=== PATIENT | male | born 1925 | race Caucasian/White ===

== ENCOUNTER 2017-08-28 10:29 | Inpatient (IN) | payer MEDICARE ==
[~2017-08-28] VITALS: Ht 175.3 cm; Wt 73.0 kg
[2017-08-28] VITALS (12 sets, daily range): BP systolic 144–193; BP diastolic 6–84; PULSE 51–76; RESP 16–20; TEMP 97.7–98; O2SAT 95–99
[~2017-08-28 10:29] MED LIST: CARV6.25 PO; LOSA50TA PO; OMEP20TA93 PO; PRAD150C PO; ROSU10 PO
[2017-08-28] MEDS ORDERED: SODIUM CHLORIDE 0.9% FLUSH 10 ML FLUSH IVF PRN (11:30)
--- NOTE | 2017-08-28 11:31 | PD ---
HPI Chief Complaint: Neuro Symptoms/ Deficits Time Seen by Provider: 11:04 Travel History International Travel<30 days: No Contact w/Intl Traveler<30days: No Traveled to known affect area: No History of Present Illness HPI 89-year-old male with PMH of A. fib, CVA with expressive aphasia, CAD, hypertension, HLD, CABG, and STEMI, on Predaxa presents to the ED via private car for evaluation of fall 5 days ago at home. Patient states he is unsure what predicated the fall. His states that she just saw him sitting on the ground. He denies hitting his head or loss of consciousness in the accident. states that immediately after she moved him to the chair he was having difficulties with word finding. She states that this has continued over the last 5 days. She denies facial droop or unilateral weakness. Patient initially did not want come to the hospital but after contacting their primary care provider today he decided come to the hospital. On presentation he endorses difficulties with word finding. He denies headaches, dizziness, vision changes , fevers, chills, chest pain, palpitations, shortness of breath, abdominal pain , nausea, vomiting, changes in bowel habits, dysuria, weakness of the extremities. He endorses compliance with his daily medications. He is followed by Dr. Peoples. [facility] Past Medical History Hx Anticoagulant Therapy: Yes Asthma: No Cancer: No Cardiovascular Problems: Yes High Cholesterol: Yes COPD: No Cerebrovascular Accident: Yes Coronary Artery Disease: Yes Genitourinary: No Hypertension: Yes Immune Disorder: No Inguinal Hernia: Yes Psychiatric: No Reproductive: Yes (Penile Implant ) Respiratory: Yes Immunizations Current: Yes Sleep Apnea: No Past Surgical History Abdominal Surgery: Yes (2 HERNIA REPAIRS) Cardiac Surgery: Yes (QUADRUPAL BYPASS) Coronary Artery Bypass Graft: Yes (X4) Other Surgery: Yes Social History Alcohol Use: Yes (OCCASIONALLY) Tobacco Use: No Substance Use: No Allergies-Medications (Allergen,Severity, Reaction): Coded Allergies: penicillin G (Unverified Allergy, Severe, Swelling, 08/28/17) Reported Meds & Prescriptions Reported Meds & Active Scripts Active Pradaxa (Dabigatran) 150 Mg Cap 150 Mg PO BID Reported Crestor (Rosuvastatin Calcium) 10 Mg Tab 10 Mg PO DAILY Omeprazole 20 Mg Tab 40 Mg PO DAILY Coreg (Carvedilol) 6.25 Mg Tab 6.25 Mg PO BID Losartan (Losartan Potassium) 50 Mg Tab 50 Mg PO DAILY Review of Systems Except as stated in HPI: all other systems reviewed are Neg Physical Exam Narrative GENERAL: Well-nourished, well-developed pleasant white male in no acute distress. SKIN: Focused skin assessment warm/dry. HEAD: Normocephalic. Atraumatic. EYES: No scleral icterus. No injection or drainage. PERRLA. EOMI. NECK: Supple, trachea midline. No JVD or lymphadenopathy. CARDIOVASCULAR: Irregularly irregular rate and rhythm without murmurs, gallops, or rubs. RESPIRATORY: Breath sounds clear and equal bilaterally. No accessory muscle use. GASTROINTESTINAL: Abdomen soft, non-tender, nondistended. Active bowel sounds MUSCULOSKELETAL: No cyanosis, or edema. NEUROLOGICAL: Awake and alert. Cranial nerves II through XII intact. Motor and sensory grossly within normal limits. Five out of 5 muscle strength in all muscle groups. Normal speech. No pronator drift. No ataxia. BACK: Nontender without obvious deformity. No CVA tenderness. Data Data Last Documented VS Vital Signs Date Time Temp Pulse Resp B/P (MAP) Pulse Ox O2 Delivery O2 Flow Rate FiO2 08/28/17 12:50 51 17 162/65 (97) 98 Room Air 08/28/17 10:30 97.7 Orders Orders Electrocardiogram (08/28/17 11:22) Complete Blood Count With Diff (08/28/17 11:22) Comprehensive Metabolic Panel (08/28/17 11:22) Magnesium (Mg) (08/28/17 11:22) Ckmb (Isoenzyme) Profile (08/28/17 11:22) Troponin I (08/28/17 11:22) Act Partial Throm Time (Ptt) (08/28/17 11:22) Prothrombin Time / Inr (Pt) (08/28/17 11:22) Urinalysis - C+S If Indicated (08/28/17 11:22) Chest, Single Ap (08/28/17 11:22) Ct Brain W/O Iv Contrast(Rout) (08/28/17 11:22) Ecg Monitoring (08/28/17 11:22) Iv Access Insert/Monitor (08/28/17 11:22) Oximetry (08/28/17 11:22) Sodium Chloride 0.9% Flush (Ns Flush) (08/28/17 11:30) CKMB (08/28/17 11:15) CKMB% (08/28/17 11:15) Admit Order (Ed Use Only) (08/28/17 13:03) Labs Laboratory Tests Test 08/28/17 11:15 08/28/17 12:40 White Blood Count 5.0 TH/MM3 Red Blood Count 3.97 MIL/MM3 Hemoglobin 14.0 GM/DL Hematocrit 41.6 % Mean Corpuscular Volume 104.6 FL Mean Corpuscular Hemoglobin 35.1 PG Mean Corpuscular Hemoglobin Concent 33.6 % Red Cell Distribution Width 13.8 % Platelet Count 230 TH/MM3 Mean Platelet Volume 8.4 FL Neutrophils (%) (Auto) 60.7 % Lymphocytes (%) (Auto) 26.4 % Monocytes (%) (Auto) 11.4 % Eosinophils (%) (Auto) 0.9 % Basophils (%) (Auto) 0.6 % Neutrophils # (Auto) 3.0 TH/MM3 Lymphocytes # (Auto) 1.3 TH/MM3 Monocytes # (Auto) 0.6 TH/MM3 Eosinophils # (Auto) 0.0 TH/MM3 Basophils # (Auto) 0.0 TH/MM3 CBC Comment DIFF FINAL Differential Comment Prothrombin Time 12.4 SEC Prothromb Time International Ratio 1.1 RATIO Activated Partial Thromboplast Time 35.5 SEC Blood Urea Nitrogen 21 MG/DL Creatinine 1.48 MG/DL Random Glucose 140 MG/DL Total Protein 6.8 GM/DL Albumin 3.2 GM/DL Calcium Level 8.8 MG/DL Magnesium Level 2.0 MG/DL Alkaline Phosphatase 57 U/L Aspartate Amino Transf (AST/SGOT) 23 U/L Alanine Aminotransferase (ALT/SGPT) 24 U/L Total Bilirubin 0.7 MG/DL Sodium Level 140 MEQ/L Potassium Level 4.1 MEQ/L Chloride Level 108 MEQ/L Carbon Dioxide Level 24.8 MEQ/L Anion Gap 7 MEQ/L Estimat Glomerular Filtration Rate 45 ML/MIN Total Creatine Kinase 161 U/L Creatine Kinase MB 2.0 NG/ML Troponin I 0.02 NG/ML Urine Color YELLOW Urine Turbidity CLEAR Urine pH 6.0 Urine Specific [place] 1.015 Urine Protein NEG mg/dL Urine Glucose (UA) NEG mg/dL Urine Ketones NEG mg/dL Urine Occult Blood NEG Urine Nitrite NEG Urine Bilirubin NEG Urine Urobilinogen LESS THAN 2.0 MG/DL Urine Leukocyte Esterase NEG Urine RBC LESS THAN 1 /hpf Urine WBC LESS THAN 1 /hpf Urine Mucus FEW /lpf Microscopic Urinalysis Comment CULT NOT INDICATED MDM Medical Decision Making Medical Screen Exam Complete: Yes Emergency Medical Condition: Yes Differential Diagnosis TIA versus CVA versus ACS versus metabolic derangement versus other Narrative Course 89-year-old male with PMH of A. fib, CVA with expressive aphasia, CAD, hypertension, HLD, CABG, and STEMI, on Predaxa presents to the ED via private car for evaluation of fall 5 days ago at home. Patient states he is unsure what predicated the fall. His states that she just saw him sitting on the ground. He denies hitting his head or LOC. states that the patient was having difficulties with word finding. She states that this has continued over the last 5 days. She denies facial droop or unilateral weakness. Patient did not want come to the hospital but after contacting the PCP today he decided come to the hospital. On presentation he endorses difficulties with word finding. He denies headaches, dizziness, vision changes, fevers, chills, chest pain, palpitations, shortness of breath, abdominal pain, nausea, vomiting, changes in bowel habits, dysuria, weakness of the extremities. He is followed by Dr. Peoples. Vitals reviewed. Patient's hypertensive on presentation. Physical exam reveals a pleasant white male in no acute distress. He does seem to have some expressive aphasia but am unsure as to the acuity of this as he does have a history. No focal neuro deficits. No pronator drift. Heart rate irregularly irregular. Chest CTAB. Abdomen soft and nontender. IV was established. EKG rate 65, A. fib with PVCs. Reviewed by Dr. Bullard. CXR: No acute disease per radiology read. Troponin: Negative 1 CT brain: Stable CT of the brain as compared to prior studies. CBC: WBC 5.0. Hemoglobin 14.6. CMP: BUN 21. Creatinine 1.48. Coags: INR 1.1 UA: No culture indicated I discussed the patient and workup with Dr. Bullard. He is in agreement with the patient should likely be admitted for evaluation of TIA. I discussed this plan with the family who is in agreement. I spoke with Dr. Harry who agrees to accept the patient to the medicine service. Please see medicine notes for disposition. Mar Rachel Aug 28, 2017 11:31
[2017-08-28 11:48] LABS: BASOPHIL % 0.6 % (0.0-2.0); EOSINOPHIL % 0.9 % (0.0-4.0); HEMATOCRIT 41.6 % (39.0-51.0); HEMO FLAGS DIFF FINAL; LYMPH % 26.4 % (9.0-44.0); LYMPHOCYTE # 1.3 TH/MM3 (1.0-4.8); MEAN CELL VOLUME 104.6 FL (80.0-100.0); MEAN CORPUSCULAR HEMOGLOBIN 35.1 PG (27.0-34.0); MEAN CORPUSCULAR HGB CONC 33.6 % (32.0-36.0); MONO % 11.4 % (0.0-8.0); NEUT % 60.7 % (16.0-70.0); PLATELET COUNT 230 TH/MM3 (150-450); RED BLOOD COUNT 3.97 MIL/MM3 (4.50-5.90); RED CELL DISTRIBUTION WIDTH 13.8 % (11.6-17.2)
[2017-08-28 11:55] LABS: APTT (PATIENT) 35.5 SEC (24.3-30.1); INTERNATIONAL NORMALIZED RATIO 1.1 RATIO; PROTHROMBIN TIME - PATIENT 12.4 SEC (9.8-11.6)
--- NOTE | 2017-08-28 12:00 | RADRPT ---
EXAM DATE/TIME: 08/28/2017 11:34 [facility] COMPARISON: CHEST SINGLE AP, November 30, 2015, 8:29. INDICATIONS : Palpitations MEDICAL HISTORY : Cardiovascular disease. Hypertension SURGICAL HISTORY : CABG. ENCOUNTER: Initial ACUITY: 1 day PAIN SCORE: 0/10 LOCATION: chest FINDINGS: A single view of the chest demonstrates the lungs to be symmetrically aerated without evidence of mas s, infiltrate or effusion. The cardiomediastinal contours are unremarkable. There is evidence of pre vious cardiothoracic surgery. Osseous structures are intact and stable. There are multiple old heale d right-sided rib fractures. CONCLUSION: No acute disease. Stable exam Adonis Crisostomo MD on August 28, 2017 at 11:57 Board Certified Radiologist. This report was verified electronically.
--- NOTE | 2017-08-28 12:01 | RADRPT ---
EXAM DATE/TIME: 08/28/2017 11:41 [facility] COMPARISON: CT BRAIN W/O CONTRAST, October 01, 2016, 11:10. INDICATIONS : Dizziness, fell on Friday RADIATION DOSE: 33.51 CTDIvol (mGy) MEDICAL HISTORY : Hypertension. Cardiovascular disease SURGICAL HISTORY : None. ENCOUNTER: Initial ACUITY: 1 day PAIN SCALE: 0/10 LOCATION: cranial TECHNIQUE: Multiple contiguous axial images were obtained of the head. Using automated exposure control and adj ustment of the mA and/or kV according to patient size, radiation dose was kept as low as reasonably a chievable to obtain optimal diagnostic quality images. DICOM format image data is available electro nically for review and comparison. FINDINGS: CEREBRUM: The ventricles are normal for age. There is bilateral cortical atrophy which is stable compared to th e prior exam. No evidence of midline shift, mass lesion, hemorrhage or acute infarction. No extra-a xial fluid collections are seen. POSTERIOR FOSSA: The cerebellum and brainstem are intact. The 4th ventricle is midline. The cerebellopontine angle i s unremarkable. EXTRACRANIAL: The visualized portion of the orbits is intact. SKULL: The calvaria is intact. No evidence of skull fracture. CONCLUSION: Stable CT scan of the brain compared to the prior exam of 10/01/2016. Adonis Crisostomo MD on August 28, 2017 at 11:58 Board Certified Radiologist. This report was verified electronically.
[2017-08-28 12:10] LABS: ALT (GPT) 24 U/L (12-78); ANION GAP 7 MEQ/L (5-15); AST (GOT) 23 U/L (15-37); BICARBONATE 24.8 MEQ/L (21.0-32.0); BLOOD UREA NITROGEN 21 MG/DL (7-18); CHLORIDE 108 MEQ/L (98-107); GLOMERULAR FILTRATION RATE 45 ML/MIN (>89); POTASSIUM 4.1 MEQ/L (3.5-5.1); SODIUM (NA) 140 MEQ/L (136-145)
[2017-08-28 12:14] LABS: ALKALINE PHOSPHATASE 57 U/L (45-117); CREATINE KINASE 161 U/L (39-308); TOTAL BILIRUBIN ADULT 0.7 MG/DL (0.2-1.0)
[2017-08-28 13:04] LABS: BLOOD, URINE NEG (NEG); COMMENT (UR) CULT NOT INDICATED; CULTURE IF INDICATED CULT NOT INDICATED; GLUCOSE,URINE NEG (NEG); KETONE, URINE NEG (NEG); MUCUS URINE FEW /lpf (OCC); NITRITE,URINE NEG (NEG); URINE COLOR YELLOW (YELLW/STRAW)
[2017-08-28] MEDS ORDERED: ONDANSETRON HCL 4 MG/2 ML VIAL IV PRN (13:15)
[2017-08-28] MEDS ORDERED: ACETAMINOPHEN 325 MG TAB PO PRN (13:15)
[2017-08-28] MEDS: SODIUM CHLOR 0.9% 1000 ML INJ 1,000 ML IV SCH (14:27)
--- NOTE | 2017-08-28 15:36 | RADRPT ---
EXAM DATE/TIME: 08/28/2017 14:36 [facility] COMPARISON: MRI BRAIN W/O CONTRAST, August 28, 2017, 14:36. MRA BRAIN W/O CONTRAST, October 01, 2016, 15:32. INDICATIONS : Dizziness. Difficulty with speech. CVA. MEDICAL HISTORY : Hypertension. Cerebrovascular disease. A-fib. CAD. SURGICAL HISTORY : CABG Penile implant. ENCOUNTER: Subsequent ACUITY: 1 day PAIN SCORE: 0/10 LOCATION: head. Please note a normal MRA of the brain does not entirely exclude the possibility of a small aneurysm, nor the possibility of distal intracranial vessel disease. TECHNIQUE: 3D time of flight MRA was performed. Source images, multiplanar STS MIP, and 3D volume MIP reconstru ctions were reviewed. 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 There is limited collateral reconstitution of the intracranial circulation on the right via the a-Com and the P-comm. The anterior and middle cerebral circulation is patent. There did appear to be a few of the insular b ranches missing on the left. The basilar is patent. There are portions of the right posterior cerebral which are not visualized ae rated there are patchy areas disease in the left posterior cerebral as well. The exam would suggest i ntracranial atherosclerotic disease. CONCLUSION: 1. 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 2. There is collateral reconstitution of the anterior and middle cerebral circulation on the right. 3. Patchy areas of signal dropout in the intracranial vessels suggesting intracranial atherosclerotic disease. 4. Overall, changes appear similar to previous dated 10/01/16. Tolu Mclaughlin MD on August 28, 2017 at 15:30 Board Certified Radiologist. This report was verified electronically.
--- NOTE | 2017-08-28 15:38 | RADRPT ---
EXAM DATE/TIME: 08/28/2017 14:36 [facility] COMPARISON: MRA BRAIN W/O CONTRAST, October 01, 2016, 15:32. INDICATIONS : Dizziness. Difficulty speaking. CVA. MEDICAL HISTORY : Hypertension. Cerebrovascular disease. A-fib. CAD. SURGICAL HISTORY : CABG Penile implant. ENCOUNTER: Subsequent ACUITY: 1 day PAIN SCORE: 0/10 LOCATION: head. TECHNIQUE: Multiplanar, multisequence MRI of the brain was performed without contrast. FINDINGS: The examination demonstrates an area of abnormal diffusion restricted signal between the watershed di stribution posteriorly on the left. Findings would be most consistent with a small area of acute araceli ical infarct. The ventricles are normal in size and configuration. No mass lesion is identified. There are scattere d areas of increased T2 signal most consistent with moderate microvascular ischemic demyelinative kae nge. Sagittal T1-weighted images demonstrate normal formation of the corpus callosum and midline structure s. The cerebellar tonsils are in their appropriate location. The visualized portion of sinus and orbit are intact. CONCLUSION: 1. Abnormal diffusion restricted signal in the watershed distribution posteriorly involving the poste rior temporal and occipital cortex. Findings would be consistent with areas of acute cortical infarct . There is no hemorrhage identified within this. Tolu Mclaughlin MD on August 28, 2017 at 15:35 Board Certified Radiologist. This report was verified electronically.
[2017-08-28] MEDS ORDERED: DEXTROSE 50% IN WATER 50 ML VIAL(D50) IV PUSH PRN (16:15)
[2017-08-28] MEDS ORDERED: SODIUM CHLORIDE 0.9% FLUSH 5 ML FLUSH IV FLUSH PRN (16:15)
[2017-08-28] MEDS ORDERED: GLUCAGON 1 MG/ML VIAL OTHER PRN (16:15)
--- NOTE | 2017-08-28 16:20 | HHI.HP ---
HPI Service [facility] Hospitalists Primary Care Physician Franko Peoples MD Admission Diagnosis CVA Chief Complaint: Dysarthria/Expressive aphasia Travel History International Travel<30 Days: No Contact w/Intl Traveler <30 Da: No Traveled to Known Affected Are: No History of Present Illness Mr. Qureshi is an 89 y/o WM with A. gillian, hx of CVA with expressive aphasia in 2015 on Pradaxa, CAD s/p CABG, hypertension, and hyperlipidemia who presented to the ED for expressive aphasia. Per the ED records the pts found him sitting on the floor 5 days ago and since that time he has had issues with word finding. The pt is unclear if why he fell and does not recall any events surrounding this fall. He does not recall hitting his head or any loss of consciousness. There was no reported facial droop or unilateral weakness. Pt has been able to ambulate around his house without difficulty. He states that he was driving up until a few weeks ago but is unable to relay any specific reason why he hasn't driven in the last few weeks. Patient initially did not want come to the hospital but after contacting their primary care provider today he decided come to the hospital. Pt endorses difficulties with word finding but no other complaints. He denies headaches, dizziness, fevers, chills , chest pain, palpitations, shortness of breath, abdominal pain, nausea, vomiting, changes in bowel habits, dysuria, weakness of the extremities. He endorses compliance with his daily medications and was prescribed Pradaxa after a CVA in 09/2016. EKG at admission with A. gillian with aberrant conduction or PVCs. Head CT was negative. MRI Brain noted abnormal diffusion restricted signal in the watershed distribution posteriorly involving the posterior temporal and occipital cortex. Findings would be consistent with areas of acute cortical infarct. There is no hemorrhage identified within this. Pt is being admitted for acute CVA while on Pradaxa. Review of Systems Constitutional: DENIES: Fever, Chills, Dizziness, Change in appetite Eyes: DENIES: Vision loss Ears, nose, mouth, throat: DENIES: Hearing loss Respiratory: DENIES: Cough, Shortness of breath Cardiovascular: DENIES: Chest pain, Palpitations Gastrointestinal: DENIES: Abdominal pain, Black stools, Bloody stools, Constipation, Diarrhea, Nausea, Vomiting Musculoskeletal: DENIES: Back pain, Neck pain Integumentary: DENIES: Rash Neurologic: COMPLAINS OF: Speech Problems, DENIES: Headache, Localized weakness , Paresthesias, Poor Balance Past Family Social History Past Medical History CVA in 09/2016 A. fib Carotid artery occlusion Coronary artery disease status post CABG VF arrest 11/1015 Dyslipidemia Hypertension 2D echo (10/03/16) - EF 40-45% - Moderate aortic valve regurg - Moderate mitral valve regurg - RV mildly to moderately dilated - RA mildly to moderately dilated - Mild tricuspid valve regurg - PA prek pressure 47mmHg Past Surgical History CABG 20 years ago Inguinal hernia repairs 2 Bilateral rotator cuff repair Reported Medications Pradaxa 150 Mg PO BID Crestor 10 Mg PO DAILY Omeprazole 40 Mg PO DAILY Coreg 6.25 Mg PO BID Losartan 50 Mg PO DAILY Allergies: Coded Allergies: penicillin G (Unverified Allergy, Severe, Swelling, 08/28/17) Family History Noncontributory Social History (+)Alcohol use, 1-2 glasses of wine at night Denies any tobacco use or illicit drug use Pt is x 10 years, no children 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[employer], 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 Cool and dry. HEENT: Atraumatic. Normocephalic. No temporal or scalp tenderness. No scleral icterus. Airway patent. NECK: Trachea midline, supple, nontender. CARDIO: Irregularly irregular RESP: CTA bilaterally. No wheezes, rales, or rhonchi. ABD: Abdomen soft, non-tender, nondistended. EXT: Extremities without clubbing, cyanosis, or edema. NEURO: Awake and alert. Motor and sensory grossly within normal limits. Five out of 5 muscle strength in all muscle groups. Expressive aphasia Laboratory Laboratory Tests Test 08/28/17 11:15 08/28/17 12:40 White Blood Count 5.0 Red Blood Count 3.97 Hemoglobin 14.0 Hematocrit 41.6 Mean Corpuscular Volume 104.6 Mean Corpuscular Hemoglobin 35.1 Mean Corpuscular Hemoglobin Concent 33.6 Red Cell Distribution Width 13.8 Platelet Count 230 Mean Platelet Volume 8.4 Neutrophils (%) (Auto) 60.7 Lymphocytes (%) (Auto) 26.4 Monocytes (%) (Auto) 11.4 Eosinophils (%) (Auto) 0.9 Basophils (%) (Auto) 0.6 Neutrophils # (Auto) 3.0 Lymphocytes # (Auto) 1.3 Monocytes # (Auto) 0.6 Eosinophils # (Auto) 0.0 Basophils # (Auto) 0.0 CBC Comment DIFF FINAL Differential Comment Prothrombin Time 12.4 Prothromb Time International Ratio 1.1 Activated Partial Thromboplast Time 35.5 Blood Urea Nitrogen 21 Creatinine 1.48 Random Glucose 140 Total Protein 6.8 Albumin 3.2 Calcium Level 8.8 Magnesium Level 2.0 Alkaline Phosphatase 57 Aspartate Amino Transf (AST/SGOT) 23 Alanine Aminotransferase (ALT/SGPT) 24 Total Bilirubin 0.7 Sodium Level 140 Potassium Level 4.1 Chloride Level 108 Carbon Dioxide Level 24.8 Anion Gap 7 Estimat Glomerular Filtration Rate 45 Total Creatine Kinase 161 Creatine Kinase MB 2.0 Troponin I 0.02 Urine Color YELLOW Urine Turbidity CLEAR Urine pH 6.0 Urine Specific [place] 1.015 Urine Protein NEG Urine Glucose (UA) NEG Urine Ketones NEG Urine Occult Blood NEG Urine Nitrite NEG Urine Bilirubin NEG Urine Urobilinogen LESS THAN 2.0 Urine Leukocyte Esterase NEG Urine RBC LESS THAN 1 Urine WBC LESS THAN 1 Urine Mucus FEW Microscopic Urinalysis Comment CULT NOT INDICATED Result Diagram: 08/28/17 1115 08/28/17 1115 Imaging Last Impressions Head CT 08/28/17 1122 Signed Impressions: Service Date/Time: August 11:41 - CONCLUSION: Stable CT scan of the brain compared to the prior exam of 10/01/2016. Adonis Crisostomo MD Chest X-Ray 08/28/17 1122 Signed Impressions: Service Date/Time: August 11:34 - CONCLUSION: No acute disease. Stable exam Adonis Crisostomo MD Head Magnetic Resonance Angiography 08/28/17 0000 Signed Impressions: Service Date/Time: August 14:36 - CONCLUSION: 1. 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 2. There is collateral reconstitution of the anterior and middle cerebral circulation on the right. 3. Patchy areas of signal dropout in the intracranial vessels suggesting intracranial atherosclerotic disease. 4. Overall, changes appear similar to previous dated 10/01/16. Tolu Mclaughlin MD Brain MRI 08/28/17 0000 Signed Impressions: Service Date/Time: August 14:36 - CONCLUSION: 1. Abnormal diffusion restricted signal in the watershed distribution posteriorly involving the posterior temporal and occipital cortex. Findings would be consistent with areas of acute cortical infarct. There is no hemorrhage identified within this. Tolu Mclaughlin MD Septic Shock Reassessment Heart: Irregular Lungs: Clear Skin: Warm Caprini VTE Risk Assessment Caprini VTE Risk Assessment: Mod/High Risk (score >= 2) Caprini Risk Assessment Model Point Value = 1 Point Value = 2 Point Value = 3 Point Value = 5 Age 41-60 Minor surgery BMI > 25 kg/m2 Swollen legs Varicose veins or History of unexplained or recurrent spontaneous Oral contraceptives or hormone replacement Sepsis (< 1 month) Serious lung disease, including pneumonia (< 1 month) Abnormal pulmonary function Acute myocardial infarction Congestive heart failure (< 1 month) History of inflammatory bowel disease Medical patient at bed rest Age 61-74 Arthroscopic surgery Major open surgery (> 45 min) Laparoscopic surgery (> 45 min) Malignancy Confined to bed (> 72 hours) Immobilizing plaster cast Central venous access Age >= 75 History of VTE Family history of VTE Factor V Leiden Prothrombin [id number] Lupus anticoagulant Anticardiolipin antibodies Elevated serum homocysteine Heparin-induced thrombocytopenia Other congenital or acquired thrombophilia Stroke (< 1 month) Elective arthroplasty Hip, pelvis, or leg fracture Acute spinal cord injury (< 1 month) Prophylaxis Regimen Total Risk Factor Score Risk Level Prophylaxis Regimen 0-1 Low Early ambulation 2 Moderate Order ONE of the following: *Sequential Compression Device (SCD) *Heparin 5000 units SQ BID 3-4 Higher Order ONE of the following medications: *Heparin 5000 units SQ TID *Enoxaparin/Lovenox 40 mg SQ daily (WT < 150 kg, CrCl > 30 mL/min) *Enoxaparin/Lovenox 30 mg SQ daily (WT < 150 kg, CrCl > 10-29 mL/min) *Enoxaparin/Lovenox 30 mg SQ BID (WT < 150 kg, CrCl > 30 mL/min) AND/OR *Sequential Compression Device (SCD) 5 or more Highest Order ONE of the following medications: *Heparin 5000 units SQ TID (Preferred with Epidurals) *Enoxaparin/Lovenox 40 mg SQ daily (WT < 150 kg, CrCl > 30 mL/min) *Enoxaparin/Lovenox 30 mg SQ daily (WT < 150 kg, CrCl > 10-29 mL/min) *Enoxaparin/Lovenox 30 mg SQ BID (WT < 150 kg, CrCl > 30 mL/min) AND *Sequential Compression Device (SCD) Assessment and Plan Problem List: (1) CVA (cerebral vascular accident) ICD Codes: I63.9 - Cerebral infarction, unspecified Status: Acute Plan: - Pt is an 89 y/o WM with Jessica french, hx of CVA with expressive aphasia in 09/2016 on Pradaxa, carotid artery occlusion with collaterals, CAD s/p CABG, hypertension, and hyperlipidemia Acute CVA Expressive Aphasia Carotid artery occlusion - Pt presented to the ED for expressive aphasia. Per the ED records the pts found him sitting on the floor 5 days ago and since that time he has had issues with word finding. The pt is unclear if why he fell and does not recall any events surrounding this fall. He does not recall hitting his head or any loss of consciousness. - He endorses compliance with his daily medications and was prescribed Pradaxa after a CVA in 09/2016. - EKG at admission with ABria fib with aberrant conduction or PVCs. - Head CT was negative. - MRI Brain (08/28) --> abnormal diffusion restricted signal in the watershed distribution posteriorly involving the posterior temporal and occipital cortex. Findings would be consistent with areas of acute cortical infarct. There is no hemorrhage identified within this. - MRA Brain (08/28) --> Abnormal examination demonstrating complete occlusion of the right internal carotid. There is collateral reconstitution of the anterior and middle cerebral circulation on the right. Patchy areas of signal dropout in the intracranial vessels suggesting intracranial atherosclerotic disease. Overall, changes appear similar to previous dated 10/01/16. - HOB flat - Neurology consult as the pt had this acute stroke while on Pradaxa - IVF - PT/OT/ST - Permissive HTN but continue on Coreg as pt with A. fib - Cont. Pradaxa for now until seen by Neurology - Telemetry - Supportive care - DVT prophylaxis with SCds A. fib - Cont. BB - Telemetry HTN - Hold Cozaar for permissive HTN - Monitor BP Hyperlipidemia - Home meds continued (2) Expressive aphasia ICD Codes: R47.01 - Aphasia Status: Acute (3) Atrial fibrillation ICD Codes: I48.91 - Unspecified atrial fibrillation Status: Acute (4) Coronary artery disease ICD Codes: I25.10 - Atherosclerotic heart disease of [place] coronary artery without angina pectoris Status: Chronic (5) Hypertension ICD Codes: I10 - Essential (primary) hypertension Status: Chronic (6) Acute kidney injury ICD Codes: N17.9 - Acute kidney failure, unspecified Status: Resolved Hortensia Cardona Aug 28, 2017 16:20
[2017-08-28] MEDS ORDERED: cloNIDine HCL 0.1 MG TAB PO PRN (17:15)
[2017-08-28] MEDS: INSULIN ASPART SUPPLEMENTAL SCALE SQ SCH ×2 (18:09→21:00)
[2017-08-28] MEDS: ASPIRIN EC 81 MG TABEC PO SCH (18:11)
--- NOTE | 2017-08-28 18:49 | MB ---
cc: TALA SMITH MD DATE OF CONSULTATION 08/28/17 11/[birth year]27 (89 years old) REASON FOR CONSULTATION Stroke. HISTORY OF PRESENT ILLNESS Patient is an 89-year-old man with a significant history of atrial fibrillation, stroke in the past with some mild expressive aphasia, he states with very mild heart disease, hypertension, hyperlipidemia, bypass surgery, STEMI on Pradaxa. He comes in because he has had a fall five days ago. Unsure what preceded the fall. Apparently, his found him on the ground. He has been having more word-finding he states the last few days. Denies any weakness in the arms or legs. He does have a history of A fib and he is on Pradaxa. SOCIAL HISTORY , occasional alcohol, no tobacco, no substance abuse. ALLERGIES PENICILLIN MEDICATIONS Active 1. Pradaxa 150 mg b.i.d., 2. Crestor 3. Omeprazole 4. Coreg 5. Losartan PHYSICAL EXAMINATION VITAL SIGNS: Temperature is 97.7, pulse 76, respiratory rate 20, blood pressure currently 193/84 and prior to that 158/76. NECK: Supple. No appreciable bruits. HEART: Irregularly irregular. He is awake and alert. He has some mild expressive aphasia. At times he can get words out and then after he tries to speak for a prolonged period of time expressive aphasia worsens. His pupils are reactive. Face is symmetrical. Visual rodriguez seem full. Motor dover, I do not appreciate any weakness, drift or leg lag. Cerebellar testing is normal. DTRs 1+, toes withdraws. Gait is withheld. LABORATORY DATA Reviewed. MCV 104.6. Platelets 230,000. Coag panel - PT 12.4, PTT 35.5. Chemistry - BUN 21, creatinine 1.48, GFR 45, glucose 140, hemoglobin A1c is pending. Albumin 3.2. UA unremarkable. IMAGING STUDIES Chest x-ray - No acute findings. MRI brain shows a diffusion weighted abnormality in the watershed distribution posteriorly involving the posterior temporal and occipital cortex consistent with an acute cortical infarct which is on the left. Also MRA [place] shows occlusion of the right ICA. This was also seen back in 2016, but there is collateral reconstitution of the anterior middle cerebral circulation on the right. There is also signal drop in the intracranial vessel suggesting intracranial atherosclerotic disease similar to 09/2016. IMPRESSION An 89-year-old man with atrial fibrillation with now what looks like a small left hemispheric watershed possible infarct cyst causing him to have some more expressive aphasia. At this point in time, I would continue his Pradaxa but add a baby aspirin. I do not think we need to do another carotid ultrasound nor an echo. We can certainly check his lipid panel, have some speech therapy and physical therapy and avoid hypotension but try to maintain his blood pressure at least below 200 systolic per parameters. This has been going on for a few days so at this point in time normalizing his blood pressure would not be an issue. Continue current care. Anticipate discharge planning either to rehab or home next 24 hours if the patient remains stable. MD GRAZYNA Ponce/ /4:59 PM /6:28 PM
[2017-08-28] MEDS: SODIUM CHLORIDE 0.9% FLUSH 5 ML FLUSH IV FLUSH SCH (21:00)
[2017-08-28] MEDS: CARVEDILOL 6.25 MG TAB PO SCH (22:01)
[2017-08-28] MEDS: DABIGATRAN ETEXILATE 150 MG CAP PO SCH (22:02)
[2017-08-28 22:29] LABS: HEMOGLOBIN A1b 1.7 %; HEMOGLOBIN Ao 84.1 %; HEMOGLOBIN F 0.3 %; HEMOGLOBIN LA1C 2.6 %; HEMOGLOBIN P3 5.4 %
[2017-08-29] VITALS (8 sets, daily range): BP systolic 123–157; BP diastolic 66–88; PULSE 43–72; RESP 17–20; TEMP 97.3–98.3; O2SAT 95–99
[2017-08-29] MEDS: SODIUM CHLOR 0.9% 1000 ML INJ 1,000 ML IV SCH ×2 (02:54→17:12)
[2017-08-29 07:13] LABS: BICARBONATE 22.9 MEQ/L (21.0-32.0); MAGNESIUM 1.9 MG/DL (1.5-2.5); POTASSIUM 3.9 MEQ/L (3.5-5.1)
[2017-08-29 07:16] LABS: HDL CHOLESTEROL 54.7 MG/DL (40.0-60.0)
[2017-08-29 07:29] LABS: AUTOMATED NEUTROPHIL # 3.5 TH/MM3 (1.8-7.7); BASOPHIL % 0.8 % (0.0-2.0); EOSINOPHIL % 0.7 % (0.0-4.0); HEMO FLAGS DIFF FINAL; LYMPHOCYTE # 1.6 TH/MM3 (1.0-4.8); MEAN CELL VOLUME 109.1 FL (80.0-100.0); MEAN CORPUSCULAR HGB CONC 35.8 % (32.0-36.0); MONO % 11.4 % (0.0-8.0); NEUT % 60.1 % (16.0-70.0); PLATELET COUNT 189 TH/MM3 (150-450); RED BLOOD COUNT 3.21 MIL/MM3 (4.50-5.90); RED CELL DISTRIBUTION WIDTH 13.5 % (11.6-17.2); WHITE BLOOD COUNT 5.8 TH/MM3 (4.0-11.0)
[2017-08-29] MEDS: INSULIN ASPART SUPPLEMENTAL SCALE SQ SCH ×4 (08:34→20:21)
--- NOTE | 2017-08-29 08:35 | HHI.FF ---
Face to Face Verification Diagnosis: (1) CVA (cerebral vascular accident) Physical Therapy Order: Evaluate and Treat, Improve ambulation Speech Therapy Order: To Improve: Speech and communication skills Home Health Nursing Order: Medical education Signs/symptoms of disease process Nursing assessment with vital signs I have seen patient Oswaldo Qureshi on 08/29/17. My clinical findings support the need for the requested home health care services because: Need for psychosocial assistance I certify that my clinical findings support that this patient is homebound because: Need for psychosocial assistance Viktor Harry MD Aug 29, 2017 08:35
[2017-08-29] MEDS: ATORVASTATIN 20 MG TAB PO SCH (09:00)
[2017-08-29] MEDS ORDERED: LOSARTAN 50 MG TAB PO SCH (09:00)
[2017-08-29] MEDS: SODIUM CHLORIDE 0.9% FLUSH 5 ML FLUSH IV FLUSH SCH ×2 (09:00→21:00)
--- NOTE | 2017-08-29 09:09 | HHI.PR ---
Subjective Remarks exp aphasia improving. denies diplopia or ext weakness Objective Vitals heart irreg lung cta abd s/nt ext no edema mild exp aphasia. Vital Signs Date Time Temp Pulse Resp B/P (MAP) Pulse Ox O2 Delivery O2 Flow Rate FiO2 08/29/17 04:55 97.3 72 18 134/66 (88) 97 08/29/17 00:58 70 08/28/17 23:16 97.7 56 16 184/81 (115) 99 08/28/17 20:55 68 08/28/17 20:50 21 08/28/17 19:43 98.0 51 16 144/6 (52) 95 08/28/17 18:05 173/77 (109) 08/28/17 18:00 63 08/28/17 16:24 08/28/17 15:58 97.7 76 20 193/84 (120) 99 08/28/17 15:30 158/76 (103) 08/28/17 12:50 51 17 162/65 (97) 98 Room Air 08/28/17 11:29 61 17 174/70 (104) 95 Room Air 08/28/17 10:59 53 18 96 Room Air 08/28/17 10:59 53 18 174/70 (104) 96 Room Air 08/28/17 10:56 53 18 174/70 (104) 96 08/28/17 10:30 97.7 56 16 191/77 (115) 97 Room Air Result Diagram: 08/29/17 0617 08/29/17 0617 Imaging Last Impressions Head CT 08/28/17 1122 Signed Impressions: Service Date/Time: August 11:41 - CONCLUSION: Stable CT scan of the brain compared to the prior exam of 10/01/2016. Adonis Crisostomo MD Chest X-Ray 08/28/17 1122 Signed Impressions: Service Date/Time: August 11:34 - CONCLUSION: No acute disease. Stable exam Adonis Crisostomo MD Head Magnetic Resonance Angiography 08/28/17 0000 Signed Impressions: Service Date/Time: August 14:36 - CONCLUSION: 1. 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 2. There is collateral reconstitution of the anterior and middle cerebral circulation on the right. 3. Patchy areas of signal dropout in the intracranial vessels suggesting intracranial atherosclerotic disease. 4. Overall, changes appear similar to previous dated 10/01/16. Tolu Mclaughlin MD Brain MRI 08/28/17 0000 Signed Impressions: Service Date/Time: , August 28, 2017 14:36 - CONCLUSION: 1. Abnormal diffusion restricted signal in the watershed distribution posteriorly involving the posterior temporal and occipital cortex. Findings would be consistent with areas of acute cortical infarct. There is no hemorrhage identified within this. Tolu Mclaughlin MD A/P Problem List: (1) CVA (cerebral vascular accident) ICD Codes: I63.9 - Cerebral infarction, unspecified Status: Acute Plan: - Pt is an 89 y/o WM with Jessica french, hx of CVA with expressive aphasia in 09/2016 on Pradaxa, carotid artery occlusion with collaterals, CAD s/p CABG, hypertension, and hyperlipidemia Acute CVA Expressive Aphasia Carotid artery occlusion - Pt presented to the ED for expressive aphasia. Per the ED records the pts found him sitting on the floor 5 days ago and since that time he has had issues with word finding. The pt is unclear if why he fell and does not recall any events surrounding this fall. He does not recall hitting his head or any loss of consciousness. - He endorses compliance with his daily medications and was prescribed Pradaxa after a CVA in 09/2016. - EKG at admission with Jessica french with aberrant conduction or PVCs. - Head CT was negative. - MRI Brain (08/28) --> abnormal diffusion restricted signal in the watershed distribution posteriorly involving the posterior temporal and occipital cortex. Findings would be consistent with areas of acute cortical infarct. There is no hemorrhage identified within this. - MRA Brain (08/28) --> Abnormal examination demonstrating complete occlusion of the right internal carotid. There is collateral reconstitution of the anterior and middle cerebral circulation on the right. Patchy areas of signal dropout in the intracranial vessels suggesting intracranial atherosclerotic disease. Overall, changes appear similar to previous dated 10/01/16. - discussed with neurology. will cont pradaxa and add asa for now. ST for exp aphasia. will resume home bp meds. Pt with 3 sec pausing on tele this AM...monitor this AM and reevaluate later today for possible dc home vs in AM...CM consult for [facility] and outpt ST. A. fib - Cont. BB - Telemetry HTN - Hold Cozaar for permissive HTN - Monitor BP Hyperlipidemia - Home meds continued (2) Expressive aphasia ICD Codes: R47.01 - Aphasia Status: Acute (3) Atrial fibrillation ICD Codes: I48.91 - Unspecified atrial fibrillation Status: Chronic (4) Coronary artery disease ICD Codes: I25.10 - Atherosclerotic heart disease of [place] coronary artery without angina pectoris Status: Chronic (5) Hypertension ICD Codes: I10 - Essential (primary) hypertension Status: Chronic (6) Acute kidney injury ICD Codes: N17.9 - Acute kidney failure, unspecified Status: Resolved Viktor Harry MD Aug 29, 2017 09:09
[2017-08-29] MEDS: CARVEDILOL 6.25 MG TAB PO SCH ×2 (09:50→21:27)
[2017-08-29] MEDS: PANTOPRAZOLE SOD 40 MG DELAYED RELEASE TAB PO SCH (09:50)
[2017-08-29] MEDS: ASPIRIN EC 81 MG TABEC PO SCH (09:50)
[2017-08-29] MEDS: DABIGATRAN ETEXILATE 150 MG CAP PO SCH ×2 (09:51→21:27)
--- NOTE | 2017-08-29 15:28 | EKG ---
Date Performed: 08/28/2017 Time Performed: 11:10:16 PTAGE: 89 years EKG: ATRIAL FIBRILLATION WITH ABERRANT CONDUCTION OR VENTRICULAR PREMATURE COMPLEXES MODERATE ST DEPRESSION ABNORMAL ECG Compared to PREVIOUS TRACING , ventricular ectopic beats are new, ST changes are about the same. PREV IOUS TRACIN10/01/2016 10.39 DOCTOR: Viktor Menjivar Interpretating Date/Time 08/29/2017 15:27:34
[2017-08-30] VITALS: BP 154/68; PULSE 56; RESP 18; TEMP 98.1; O2SAT 99
[2017-08-30 01:00] VITALS: BP 113/82; PULSE 88; RESP 20; TEMP 97.8; O2SAT 99
[2017-08-30 04:00] VITALS: BP_SYST 161; BP_DIAS 83; BP_DIAS 85; PULSE 82; RESP 20; TEMP 97.8; O2SAT 97
[2017-08-30] MEDS: INSULIN ASPART SUPPLEMENTAL SCALE SQ SCH ×2 (08:23→11:57)
[2017-08-30] MEDS: SODIUM CHLOR 0.9% 1000 ML INJ 1,000 ML IV SCH (08:23)
[2017-08-30] MEDS: DABIGATRAN ETEXILATE 150 MG CAP PO SCH (08:43)
[2017-08-30] MEDS: SODIUM CHLORIDE 0.9% FLUSH 5 ML FLUSH IV FLUSH SCH (08:43)
[2017-08-30] MEDS: ASPIRIN EC 81 MG TABEC PO SCH (08:43)
[2017-08-30] MEDS: ATORVASTATIN 20 MG TAB PO SCH (08:43)
[2017-08-30] MEDS: CARVEDILOL 6.25 MG TAB PO SCH (08:43)
[2017-08-30] MEDS: PANTOPRAZOLE SOD 40 MG DELAYED RELEASE TAB PO SCH (08:43)
[2017-08-30 08:48] VITALS: BP 186/88; PULSE 83; RESP 16; TEMP 97.5; O2SAT 98
[2017-08-30] MEDS ORDERED: LOSARTAN 50 MG TAB PO ONE (10:30)
[2017-08-30 10:42] VITALS: O2SAT 99
[2017-08-30] MEDS ORDERED: ASPI-183 PO (10:54)
[2017-08-30] MEDS ORDERED: methylPREDNISolone SOD SUCC 125 MG/2 ML VIAL IV PUSH ONE (11:00)
--- NOTE | 2017-08-30 11:01 | HHI.PR ---
Subjective Remarks Pt complains of pain and swelling of the right knee that reportedly started last night. He is able to ambulate to the bathroom Afebrile Pt is anxious for discharge Objective Vitals Vital Signs Date Time Temp Pulse Resp B/P (MAP) Pulse Ox O2 Delivery O2 Flow Rate FiO2 08/30/17 08:48 97.5 83 16 186/88 (120) 98 08/30/17 04:00 97.8 82 20 161/85 (110) 97 08/30/17 04:00 97.8 82 20 161/83 (109) 97 08/30/17 01:00 97.8 88 20 113/82 (92) 99 08/30/17 00:00 98.1 56 18 154/68 (96) 99 08/29/17 23:45 71 08/29/17 20:30 98.3 54 17 157/71 (99) 99 08/29/17 17:29 43 08/29/17 16:00 97.5 52 20 123/86 (98) 99 08/29/17 13:04 97.6 50 20 144/66 (92) 96 Result Diagram: 08/29/1761608/29/17616 Other Results Laboratory Tests Test 08/28/17 11:15 08/28/17 12:40 08/29/17 06:17 White Blood Count 5.0 TH/MM3 5.8 TH/MM3 Red Blood Count 3.97 MIL/MM3 3.21 MIL/MM3 Hemoglobin 14.0 GM/DL 12.5 GM/DL Hematocrit 41.6 % 35.0 % Mean Corpuscular Volume 104.6 FL 109.1 FL Mean Corpuscular Hemoglobin 35.1 PG 39.0 PG Mean Corpuscular Hemoglobin Concent 33.6 % 35.8 % Red Cell Distribution Width 13.8 % 13.5 % Platelet Count 230 TH/MM3 189 TH/MM3 Mean Platelet Volume 8.4 FL 8.6 FL Neutrophils (%) (Auto) 60.7 % 60.1 % Lymphocytes (%) (Auto) 26.4 % 27.0 % Monocytes (%) (Auto) 11.4 % 11.4 % Eosinophils (%) (Auto) 0.9 % 0.7 % Basophils (%) (Auto) 0.6 % 0.8 % Neutrophils # (Auto) 3.0 TH/MM3 3.5 TH/MM3 Lymphocytes # (Auto) 1.3 TH/MM3 1.6 TH/MM3 Monocytes # (Auto) 0.6 TH/MM3 0.7 TH/MM3 Eosinophils # (Auto) 0.0 TH/MM3 0.0 TH/MM3 Basophils # (Auto) 0.0 TH/MM3 0.0 TH/MM3 CBC Comment DIFF FINAL DIFF FINAL Differential Comment Prothrombin Time 12.4 SEC Prothromb Time International Ratio 1.1 RATIO Activated Partial Thromboplast Time 35.5 SEC Blood Urea Nitrogen 21 MG/DL 19 MG/DL Creatinine 1.48 MG/DL 1.30 MG/DL Random Glucose 140 MG/DL 95 MG/DL Total Protein 6.8 GM/DL Albumin 3.2 GM/DL Calcium Level 8.8 MG/DL 8.2 MG/DL Magnesium Level 2.0 MG/DL 1.9 MG/DL Alkaline Phosphatase 57 U/L Aspartate Amino Transf (AST/SGOT) 23 U/L Alanine Aminotransferase (ALT/SGPT) 24 U/L Total Bilirubin 0.7 MG/DL Sodium Level 140 MEQ/L 142 MEQ/L Potassium Level 4.1 MEQ/L 3.9 MEQ/L Chloride Level 108 MEQ/L 112 MEQ/L Carbon Dioxide Level 24.8 MEQ/L 22.9 MEQ/L Anion Gap 7 MEQ/L 7 MEQ/L Estimat Glomerular Filtration Rate 45 ML/MIN 52 ML/MIN Hemoglobin A1c 5.9 % Total Creatine Kinase 161 U/L Creatine Kinase MB 2.0 NG/ML Troponin I 0.02 NG/ML Urine Color YELLOW Urine Turbidity CLEAR Urine pH 6.0 Urine Specific [place] 1.015 Urine Protein NEG mg/dL Urine Glucose (UA) NEG mg/dL Urine Ketones NEG mg/dL Urine Occult Blood NEG Urine Nitrite NEG Urine Bilirubin NEG Urine Urobilinogen LESS THAN 2.0 MG/DL Urine Leukocyte Esterase NEG Urine RBC LESS THAN 1 /hpf Urine WBC LESS THAN 1 /hpf Urine Mucus FEW /lpf Microscopic Urinalysis Comment CULT NOT INDICATED Triglycerides Level 100 MG/DL Cholesterol Level 150 MG/DL LDL Cholesterol 75 MG/DL HDL Cholesterol 54.7 MG/DL Cholesterol/HDL Ratio 2.74 RATIO Vitamin B12 Level 533 PG/ML Imaging Last Impressions Head CT 08/28/17 1122 Signed Impressions: Service Date/Time: August 11:41 - CONCLUSION: Stable CT scan of the brain compared to the prior exam of 10/01/2016. Adonis Crisostomo MD Chest X-Ray 08/28/17 1122 Signed Impressions: Service Date/Time: August 11:34 - CONCLUSION: No acute disease. Stable exam Adonis Crisostomo MD Head Magnetic Resonance Angiography 08/28/17 0000 Signed Impressions: Service Date/Time: August 14:36 - CONCLUSION: 1. 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 2. There is collateral reconstitution of the anterior and middle cerebral circulation on the right. 3. Patchy areas of signal dropout in the intracranial vessels suggesting intracranial atherosclerotic disease. 4. Overall, changes appear similar to previous dated 10/01/16. Tolu Mclaughlin MD Brain MRI 08/28/17 0000 Signed Impressions: Service Date/Time: August 14:36 - CONCLUSION: 1. Abnormal diffusion restricted signal in the watershed distribution posteriorly involving the posterior temporal and occipital cortex. Findings would be consistent with areas of acute cortical infarct. There is no hemorrhage identified within this. Tolu Mclaughlin MD Objective Remarks General: NAD, AAOx3 Chest: CTA Cardiac: Irregular Abd: +BS, soft ND/NT Ext: Right knee mild effusion and slight tenderness with palpation of the knee cap Neuro: Still with some expressive aphasia, BAUMANN A/P Problem List: (1) CVA (cerebral vascular accident) ICD Codes: I63.9 - Cerebral infarction, unspecified Status: Acute Plan: - Pt is an 89 y/o WM with A. fib, hx of CVA with expressive aphasia in 09/2016 on Pradaxa, carotid artery occlusion with collaterals, CAD s/p CABG, hypertension, and hyperlipidemia Acute CVA Expressive Aphasia Carotid artery occlusion - Pt presented to the ED for expressive aphasia. Per the ED records the pts found him sitting on the floor 5 days ago and since that time he has had issues with word finding. The pt is unclear if why he fell and does not recall any events surrounding this fall. He does not recall hitting his head or any loss of consciousness. - He endorses compliance with his daily medications and was prescribed Pradaxa after a CVA in 09/2016. - EKG at admission with A. fib with aberrant conduction or PVCs. - Head CT was negative. - MRI Brain (08/28) --> abnormal diffusion restricted signal in the watershed distribution posteriorly involving the posterior temporal and occipital cortex. Findings would be consistent with areas of acute cortical infarct. There is no hemorrhage identified within this. - MRA Brain (08/28) --> Abnormal examination demonstrating complete occlusion of the right internal carotid. There is collateral reconstitution of the anterior and middle cerebral circulation on the right. Patchy areas of signal dropout in the intracranial vessels suggesting intracranial atherosclerotic disease. Overall, changes appear similar to previous dated 10/01/16. - Case was discussed with neurology. Will cont Pradaxa and add ASA, ptr reports that he takes ASA 81mg HS so we will plan for continuation of ASA but at 325mg po daily dosing. - Arrange for [facility] for exp aphasia. - Cont. home bp meds. - Pt had noted on telemetry on 08/29 a 3 sec pause, no further pausing noted on telemetry since then. - Pt stable for discharge today - He will need followup with his PCP, Dr. Franko Peoples, in 1 week - Pt will need to followup with Dr. Buckner in 2 weeks - Cont. Pradaxa, increase ASA to 325mg po daily Right knee pain - XRay today - Solu-Medrol 125mg x one dose - Instructed to avoid NSAIDs for pain upon discharge A. fib - Cont. BB HTN - Cont. Cozaar - Monitor BP Hyperlipidemia - Home meds continued (2) Expressive aphasia ICD Codes: R47.01 - Aphasia Status: Acute (3) Atrial fibrillation ICD Codes: I48.91 - Unspecified atrial fibrillation Status: Chronic (4) Coronary artery disease ICD Codes: I25.10 - Atherosclerotic heart disease of [place] coronary artery without angina pectoris Status: Chronic (5) Hypertension ICD Codes: I10 - Essential (primary) hypertension Status: Chronic (6) Acute kidney injury ICD Codes: N17.9 - Acute kidney failure, unspecified Status: Resolved Assessment and Plan Patient examined. Assessment and plan formulated with Hortensia Cardona PA-C. I agree with the above. acute cva left parietooccipital. probably atherosclerosis. on pradaxa. increased asa. discussed with neuro. ok for d/c had some right knee mild swelling. xray ok. dose solumedrol given. pt is able to walk on it. Problem Qualifiers (1) CVA (cerebral vascular accident): Qualified Codes: I63.9 - Cerebral infarction, unspecified Hortensia Cardona Aug 30, 2017 11:01 Viktor Harry MD Aug 30, 2017 14:51
--- NOTE | 2017-08-30 14:08 | RADRPT ---
EXAM DATE/TIME: 08/30/2017 13:40 [facility] COMPARISON: No previous studies available for comparison. INDICATIONS : Pain from fall. MEDICAL HISTORY : None. SURGICAL HISTORY : None. ENCOUNTER: Initial ACUITY: 1 day PAIN SCORE: 3/10 LOCATION: Right knee. FINDINGS: Surgical clips are noted left medial leg. Popliteal artery calcifications and tibial artery calcifica tions are noted. There is no effusion, fracture or dislocation. Mild spurring of the tibial spines. CONCLUSION: Atherosclerosis and mild degenerative changes. Lazarus Kirkpatrick MD on August 30, 2017 at 14:06 Board Certified Radiologist. This report was verified electronically.
[2017-08-30 15:00] VITALS: BP 159/75; PULSE 65; RESP 17; TEMP 97.3; O2SAT 99
== END 2017-08-30 15:35 | disposition home health service (06) | DRG 65 ==
LOC: NEPC 10:29 → NEDA 13:06 → NEPFCDU 15:48 → OBSVTOIN 16:15 → N05B 22:52
PROVIDERS: ADMIT Hospitalist; ATTEND Hospitalist
DX: I63.9 Cerebral infarction, unspecified (principal); N17.9 Acute kidney failure, unspecified; I48.91 Unspecified atrial fibrillation; I69.320 Aphasia following cerebral infarction; I10 Essential (primary) hypertension; E78.5 Hyperlipidemia, unspecified; I25.10 Atherosclerotic heart disease of native coronary artery without angina pectoris; Z95.1 Presence of aortocoronary bypass graft; I25.2 Old myocardial infarction; Z79.02 Long term (current) use of antithrombotics/antiplatelets; I65.21 Occlusion and stenosis of right carotid artery; M25.461 Effusion, right knee; M25.561 Pain in right knee; Z91.81 History of falling
CPT/HCPCS: 70450; 70544; 70551; 71010; 73564; 80048; 80053; 80061; 81001; 82550; 82552; 82607; 82948; 83036; 83735; 84484; 85025; 85610; 85730; 93005; J2930; J7030